=== PATIENT | female | born 1970 | race African-American/Black ===

== ENCOUNTER 2022-07-08 03:55 | Emergency (ER) | payer MEDICAID ==
[~2022-07-08] VITALS: Ht 165.1 cm; Wt 61.0 kg
[2022-07-08 04:30] VITALS: BP 137/79
[2022-07-08] MEDS ORDERED: HYDROCODONE/ACETAMINOPHEN 5/325MG TABLET PO ONE (04:30)
[2022-07-08] MEDS ORDERED: KETOROLAC 30MG/ML VIAL IM ONE (04:30)
[2022-07-08] MEDS ORDERED: LORAZEPAM 0.5MG TABLET PO ONE (04:30)
[2022-07-08] MEDS ORDERED: NAPR-1176 MT (05:02)
== END 2022-07-08 06:00 | disposition home or self-care (01) ==
LOC: ER 03:55
DX: M19.042 Primary osteoarthritis, left hand (principal); M19.041 Primary osteoarthritis, right hand
CPT/HCPCS: 73130; 96372; 99283; J1885